=== PATIENT | female | born 1970 | race Caucasian/White ===

== ENCOUNTER 2017-10-27 20:00 | Emergency (ER) | payer BC, OTHER ==
[~2017-10-27] VITALS: Ht 176.5 cm; Wt 112.4 kg
[~2017-10-27 20:00] MED LIST: ADAL40KI SQ; ASPI325T39 PO; ASTN; ATOR-22 PO; CALC0.009 TOP; CALC500C50 PO; CITA40TA12 PO; LISI-729 PO; METF-384 PO; NRN/300 PO; OXYC7.5T37 PO; OXYM10TA6 PO; PRLSR20 PO; TRMCR130WC TOP; ZNT/150 PO
[2017-10-27 20:03] VITALS: TEMP 36.3; Ht 176.5 cm; Wt 112.4 kg
--- NOTE | 2017-10-27 20:32 | EMERGENCY ROOM VISIT NOTE ---
History Report prepared by Nancy: Ander Mccollum Under the Supervision of: Dr. Khoi Pugh M.D. First contact with patient: 20:07 Chief Complaint: KIDNEY STONE Stated Complaint: PAIN, POSSIBLE KIDNEY STONE History of Present Illness The patient is a 47 year old female who presents to the Emergency Room with complaints of left sided back pain that began about 1 week ago. She rates her pain a 4/10 in severity. She has a past medical history of psoriasis, diabetes , and GERD. She currently takes Humira, Metformin, Lisinopril, Ranitidine, and Aspirin. She also takes Percocet and Oxycodone for a previous back injury. About a week ago, she was diagnosed with walking pneumonia. She was started on Doxycycline and Prednisone. She notes that she began having this flank pain before this time, but her doctor thought it was associated with her pneumonia. However, her pain has persisted until today and she was referred to the ER for a further workup. She notes that she still has a cough with intermittent sputum production. She denies any history of blood clots. She denies any fevers, chest pain, shortness of breath, trauma, injury, abdominal pain, numbness, weakness, rashes, or abnormal urinary symptoms. She notes that her pain is mostly presented when she is sitting, and feels better when she is lying down. Source of History: patient Onset: about 1 week ago Position: other (Left flank) Symptom Intensity: 4/10 Quality: ache Timing: other (persistent) Associated Symptoms: No fevers, No chest pain, No SOB, No abdominal pain, No weakness, No numbness, No rash Review of Systems See HPI for pertinent positives & negatives. A total of 10 systems reviewed and were otherwise negative. Past Medical & Surgical Medical Problems: (1) Bronchitis (2) section (3) Cholecystectomy (4) Colonoscopy (5) Depression (6) Diabetes (7) Dyslipidemia (8) Mammography (9) Migraine (10) Psoriasis (11) Sleep apnea (12) TIA (13) Tobacco user Old medical records were reviewed. Nurse's notes were reviewed and I agree with. Family History Patient reports no known family medical history. Social History Smoking Status: Current Every Day Smoker Alcohol Use: occasionally Marital Status: Housing Status: lives with significant other Occupation Status: employed Current/Historical Medications Scheduled Adalimumab (Humira Pen), 40 MG PE SQ WK Aspirin (Aspirin Ec), 325 MG PO DAILY Atorvastatin (Lipitor), 20 MG PO DAILY Citalopram Hydrobromide (Celexa), 40 MG PO DAILY Gabapentin (Neurontin), 600 MG PO DAILY Lisinopril (Zestril), 5 MG PO DAILY Metformin Hcl (Glucophage), 1,000 MG PO BIDM Oxycodone HCl (Oxycontin), 5 MG PO BID Ranitidine Hcl (Zantac), 150 MG PO BID Scheduled PRN Omeprazole (Prilosec), 20 MG PO DAILY PRN for HEARTBURN Oxycodone/Acetaminophen 7.5MG/325MG (Percocet 7.5MG/325MG), 1 TAB PO QID PRN for Pain Allergies Coded Allergies: No Known Allergies (Verified , 10/27/17) Physical Exam Vital Signs Date Time Temp Pulse Resp B/P (MAP) Pulse Ox O2 Delivery O2 Flow Rate FiO2 10/27/17 21:53 71 20 119/66 93 Room Air 10/27/17 20:03 36.3 70 18 153/90 98 Room Air Physical Exam General: Non-ill appearing middle aged female in no acute distress. HEENT: Normal cephalic atraumatic. Pupils are equal round and reactive to light. Extraocular movements are intact. Oropharynx is pink with moist mucous membranes. No swelling of the mouth lips or tongue. Neck: Supple with a midline trachea. No meningeal signs or stiffness, no JVD or bruits. No Stridor. Chest: Clear to auscultation bilaterally. No wheezes or rhonchi. No increased work of breathing. Heart: regular rate and rhythm. Abdomen: Soft nontender, nondistended without rebound guarding or rigidity. Extremities: No cyanosis clubbing or edema. No calf tenderness or assymetry Spine/Back. Mild tenderness to the posterior left lower ribs. No rash. Skin: Good turgor without rashes. Neurologic exam: Cranial nerves two through 12 are intact. Motor and sensation are intact and symmetrical throughout. Medical Decision & Procedures ER Provider Diagnostic Interpretation: Radiology results as stated below per my review and radiologist interpretation: CHEST ONE VIEW PORTABLE HISTORY: 47 years-old Female CHEST PAIN acute atypical chest pain COMPARISON: Chest radiograph 06/20/2013 TECHNIQUE: Portable upright AP view of the chest FINDINGS: Cardiac silhouette is within normal limits. No pneumothorax, pleural effusion, focal airspace consolidation or overt pulmonary edema. The bones of the chest appear grossly intact. Mild right hemidiaphragmatic elevation is unchanged. IMPRESSION: No acute process. The above report was generated using voice recognition software. It may contain grammatical, syntax or spelling errors. Electronically signed by: Chapito Connell M.D. 10/27/2017 8:58 PM Dictated Date/Time: 10/27/2017 8:57 PM ABD/PELVIS WITHOUT FOR STONE HISTORY: 47 years-old Female left flank pain, eval for stone acute left-sided flank pain COMPARISON: None available TECHNIQUE: Multiple axial CT images of the abdomen and pelvis were obtained without IV contrast. A dose lowering technique was used consistent with the principals of KAIA. FINDINGS: Minimal bibasilar subsegmental atelectasis. No pneumatosis or pneumoperitoneum. Imaged inferior cardiac chambers are unremarkable. Prior cholecystectomy. The liver, spleen, pancreas and right adrenal gland are unremarkable. There is mild thickening of the left adrenal gland. Bilateral kidneys, ureters, and uterus are unremarkable. Mild wall thickening of the urinary bladder circumferentially. Metallic coils of the left hemipelvis suggests a tubo-ovarian occlusion device. There are metallic coil device is present within the anterior right hemipelvis, image 382 series 3 and also just superior to the uterine fundus on image 375 series 3. A linear metallic clip is seen within the right lower quadrant adjacent to the cecum anteriorly on image 390 series 3. Aorta is normal in course and caliber. No bulky adenopathy. There is no bowel obstruction identified. Indeterminate essentially fatty attenuating 1.4 x 0.6 cm structure adjacent to the peritoneum the left lower abdomen on image 265 series 3 may reflect an area of prior epiploic appendagitis or fat necrosis. The appendix is not definitively seen. No secondary signs of acute appendicitis. A small fat filled periumbilical hernia is noted. Bones appear intact. Mild degenerative changes of the spine. IMPRESSION: 1. No acute intra-abdominal or intrapelvic abnormality identified, specifically no renal calculi or obstructive uropathy. 2. Mild wall thickening of the urinary bladder is noted which may reflect cystitis. Correlate with urinalysis. 3. Metallic coils of the left hemipelvis suggests prior tubal ligation. There are additional metallic coils within the pelvis as above which are not within the region of the right adnexum. Correlate with prior surgical history and prior imaging to exclude dislodged tubo-ovarian occlusion device. 4. Prior cholecystectomy. The above report was generated using voice recognition software. It may contain grammatical, syntax or spelling errors. Electronically signed by: Chapito Connell M.D. 10/27/2017 10:14 PM Dictated Date/Time: 10/27/2017 10:03 PM Laboratory Results 10/27/17 20:40 Red Blood Count 4.45, Mean Corpuscular Volume 89.0, Mean Corpuscular Hemoglobin 29.9, Mean Corpuscular Hemoglobin Concent 33.6, Mean Platelet Volume 10.6, Neutrophils (%) (Auto) 80.6, Lymphocytes (%) (Auto) 14.0, Monocytes (%) (Auto) 4.9, Eosinophils (%) (Auto) 0.0, Basophils (%) (Auto) 0.2, Neutrophils # (Auto) 7.47, Lymphocytes # (Auto) 1.30, Monocytes # (Auto) 0.45, Eosinophils # (Auto) 0.00, Basophils # (Auto) 0.02 10/27/17 20:40 Test 10/27/17 20:40 10/27/17 20:47 10/27/17 21:00 10/27/17 21:28 White Blood Count 9.27 K/uL (4.8-10.8) Red Blood Count 4.45 M/uL (4.2-5.4) Hemoglobin 13.3 g/dL (12.0-16.0) Hematocrit 39.6 % (37-47) Mean Corpuscular Volume 89.0 fL (80-100) Mean Corpuscular Hemoglobin 29.9 pg (25-34) Mean Corpuscular Hemoglobin Concent 33.6 g/dl (32-36) Platelet Count 258 K/uL (130-400) Mean Platelet Volume 10.6 fL (7.4-10.4) Neutrophils (%) (Auto) 80.6 % Lymphocytes (%) (Auto) 14.0 % Monocytes (%) (Auto) 4.9 % Eosinophils (%) (Auto) 0.0 % Basophils (%) (Auto) 0.2 % Neutrophils # (Auto) 7.47 K/uL (1.4-6.5) Lymphocytes # (Auto) 1.30 K/uL (1.2-3.4) Monocytes # (Auto) 0.45 K/uL (0.11-0.59) Eosinophils # (Auto) 0.00 K/uL (0-0.5) Basophils # (Auto) 0.02 K/uL (0-0.2) RDW Standard Deviation 45.3 fL (36.4-46.3) RDW Coefficient of Variation 13.8 % (11.5-14.5) Immature Granulocyte % (Auto) 0.3 % Immature Granulocyte # (Auto) 0.03 K/uL (0.00-0.02) Anion Gap 7.0 mmol/L (3-11) Est Creatinine Clear Calc Drug Dose 137.3 ml/min Estimated GFR () 121.0 Estimated GFR (Non- 104.4 BUN/Creatinine Ratio 20.4 (10-20) Calcium Level 8.7 mg/dl (8.5-10.1) Total Bilirubin 0.8 mg/dl (0.2-1) Direct Bilirubin 0.1 mg/dl (0-0.2) Aspartate Amino Transf (AST/SGOT) 24 U/L (15-37) Alanine Aminotransferase (ALT/SGPT) 42 U/L (12-78) Alkaline Phosphatase 78 U/L (45-117) Total Protein 8.4 gm/dl (6.4-8.2) Albumin 3.9 gm/dl (3.4-5.0) Lipase 129 U/L (73-393) Bedside Troponin I < 0.030 ng/ml (0-0.045) Urine Color YELLOW Urine Appearance CLEAR (CLEAR) Urine pH 5.0 (4.5-7.5) Urine Specific [place] 1.018 (1.000-1.030) Urine Protein NEG (NEG) Urine Glucose (UA) NEG (NEG) Urine Ketones NEG (NEG) Urine Occult Blood NEG (NEG) Urine Nitrite NEG (NEG) Urine Bilirubin NEG (NEG) Urine Urobilinogen NEG (NEG) Urine Leukocyte Esterase NEG (NEG) Prothrombin Time 10.7 SECONDS (9.0-12.0) Prothromb Time International Ratio 1.0 (0.9-1.1) Activated Partial Thromboplast Time 24.7 SECONDS (21.0-31.0) Partial Thromboplastin Ratio 1.0 D-Dimer < 190 ug/L FEU (0-500) Laboratory studies as stated above per my review. ECG Indication: back/shoulder pain Rate (beats per minute): 63 Rhythm: normal sinus Findings: no acute ischemic change, no ectopy ED Course 2007: Past medical records reviewed. The patient was evaluated in room C9, and a complete history and physical examination were performed. 2103: The patient is resting comfortably at this time. We are waiting for her results. Her troponin was 0. 2134: She remains comfortable. 2228: Upon reevaluation, the patient is resting. I discussed the results and treatment plan with her. She verbalized agreement of the treatment plan. The patient was discharged home. Medical Decision Differentials include, but are not limited to; musculoskeletal pain, kidney stone, infection, PE, pneumonia, and UTI. This patient comes in as described above. She is having left posterior chest pain. She's had a cough and they told her that she had pneumonia. She is on doxycycline and prednisone. Because she is flying tomorrow, they wanted to come in the ER further checked evaluated for possible stone or other etiology. IV access established, EKG, and multiple blood testing was obtained. her troponin was within normal limits. Her symptoms are very atypical for cardiac disease. EKG is unremarkable and does not suggest cardiac disease or cardiac strain her d-dimer was within normal limits and a low pretest probability study makes PE highly unlikely. Chest x-ray was unremarkable does not show any pneumonia or pneumothorax. She has nothing to suggest diabetes or infection. She's had nothing to suggest liver, gallbladder or pancreas disease. CAT scan of her abdomen shows no acute findings. This may be more musculoskeletal and it hurts with palpation and movement. I do not see any evidence suggest shingles on exam. He will use ibuprofen return to ER if: increasing pain, worsening of symptoms, any new problems or concerns. Medication Reconcilliation Current Medication List: was personally reviewed by me Blood Pressure Screening Patient's blood pressure: Normal blood pressure Blood pressure disposition: Did not require urgent referral Impression Primary Impression: Left flank pain Scribe Attestation The scribe's documentation has been prepared under my direction and personally reviewed by me in its entirety. I confirm that the note above accurately reflects all work, treatment, procedures, and medical decision making performed by me. Departure Information Dispostion Home / Self-Care Referrals Leroy Alfredo III, M.D. (PCP) Forms HOME CARE DOCUMENTATION FORM, IMPORTANT VISIT INFORMATION, WORK / SCHOOL INSTRUCTIONS Patient Instructions My [facility] Additional Instructions Rest. Drink plenty of fluids. Use ibuprofen 400 mg every 6 hours, take with food Return if: Increasing pain, worsening of symptoms, shortness breath, any new problems or concerns.
[2017-10-27] MEDS ORDERED: OXYSR/10 PO (20:49)
[2017-10-27] MEDS ORDERED: OXYC7.5T65 PO (20:49)
[2017-10-27 20:54] LABS: BASO % 0.2 %; BASO ABS # 0.02 K/uL (0-0.2); COMPLETE YES; HEMATOCRIT 39.6 % (37-47); IG% 0.3 %; MEAN CORPUSCULAR HEMOGLOBIN 29.9 pg (25-34); MEAN CORPUSCULAR HGB CONC 33.6 g/dl (32-36); MEAN PLATELET VOLUME 10.6 fL (7.4-10.4); MONO % 4.9 %; NEUT % 80.6 %; PLATELET COUNT 258 K/uL (130-400); RED BLOOD COUNT 4.45 M/uL (4.2-5.4); WHITE BLOOD COUNT 9.27 K/uL (4.8-10.8)
--- NOTE | 2017-10-27 20:59 | DIAGNOSTIC IMAGING REPORT ---
CHEST ONE VIEW PORTABLE HISTORY: 47 years-old Female CHEST PAIN acute atypical chest pain COMPARISON: Chest radiograph 06/20/2013 TECHNIQUE: Portable upright AP view of the chest FINDINGS: Cardiac silhouette is within normal limits. No pneumothorax, pleural effusion, focal airspace consolidation or overt pulmonary edema. The bones of the chest appear grossly intact. Mild right hemidiaphragmatic elevation is unchanged. IMPRESSION: No acute process. The above report was generated using voice recognition software. It may contain grammatical, syntax or spelling errors. Electronically signed by: Chapito Connell M.D. 10/27/2017 8:58 PM Dictated Date/Time: 10/27/2017 8:57 PM
[2017-10-27 21:16] LABS: BUN/CREATININE RATIO 20.4 (10-20); CALCIUM 8.7 mg/dl (8.5-10.1); CREATININE 0.69 mg/dl (0.60-1.20); POTASSIUM 3.8 mmol/L (3.5-5.1)
[2017-10-27 21:20] LABS: URINE APPEARANCE CLEAR (CLEAR); URINE BILIRUBIN NEG (NEG); URINE COLOR YELLOW; URINE NITRITE NEG (NEG); URINE SPECIFIC GRAVITY 1.018 (1.000-1.030); UROBILINOGEN NEG (NEG)
[2017-10-27 21:23] LABS: MANUAL MICROSCOPIC REQUIRED? NO; REVIEW REQ? NO
[2017-10-27 21:55] LABS: PROTHROMBIN TIME (PATIENT) 10.7 SECONDS (9.0-12.0)
--- NOTE | 2017-10-27 22:16 | DIAGNOSTIC IMAGING REPORT ---
ABD/PELVIS WITHOUT FOR STONE HISTORY: 47 years-old Female left flank pain, eval for stone acute left-sided flank pain COMPARISON: None available TECHNIQUE: Multiple axial CT images of the abdomen and pelvis were obtained without IV contrast. A dose lowering technique was used consistent with the principals of KAIA. FINDINGS: Minimal bibasilar subsegmental atelectasis. No pneumatosis or pneumoperitoneum. Imaged inferior cardiac chambers are unremarkable. Prior cholecystectomy. The liver, spleen, pancreas and right adrenal gland are unremarkable. There is mild thickening of the left adrenal gland. Bilateral kidneys, ureters, and uterus are unremarkable. Mild wall thickening of the urinary bladder circumferentially. Metallic coils of the left hemipelvis suggests a tubo-ovarian occlusion device. There are metallic coil device is present within the anterior right hemipelvis, image 382 series 3 and also just superior to the uterine fundus on image 375 series 3. A linear metallic clip is seen within the right lower quadrant adjacent to the cecum anteriorly on image 390 series 3. Aorta is normal in course and caliber. No bulky adenopathy. There is no bowel obstruction identified. Indeterminate essentially fatty attenuating 1.4 x 0.6 cm structure adjacent to the peritoneum the left lower abdomen on image 265 series 3 may reflect an area of prior epiploic appendagitis or fat necrosis. The appendix is not definitively seen. No secondary signs of acute appendicitis. A small fat filled periumbilical hernia is noted. Bones appear intact. Mild degenerative changes of the spine. IMPRESSION: 1. No acute intra-abdominal or intrapelvic abnormality identified, specifically no renal calculi or obstructive uropathy. 2. Mild wall thickening of the urinary bladder is noted which may reflect cystitis. Correlate with urinalysis. 3. Metallic coils of the left hemipelvis suggests prior tubal ligation. There are additional metallic coils within the pelvis as above which are not within the region of the right adnexum. Correlate with prior surgical history and prior imaging to exclude dislodged tubo-ovarian occlusion device. 4. Prior cholecystectomy. The above report was generated using voice recognition software. It may contain grammatical, syntax or spelling errors. Electronically signed by: Chapito Connell M.D. 10/27/2017 10:14 PM Dictated Date/Time: 10/27/2017 10:03 PM
[2017-10-27 22:42] VITALS: BP 122/74; PULSE 68; O2SAT 98
== END 2017-10-27 22:43 | disposition home or self-care (01) ==
LOC: C.EDB 20:00 → C.EDC 22:43
DX: R10.9 Unspecified abdominal pain (principal); E11.9 Type 2 diabetes mellitus without complications; K21.9 Gastro-esophageal reflux disease without esophagitis; E78.5 Hyperlipidemia, unspecified; G43.909 Migraine, unspecified, not intractable, without status migrainosus; L40.9 Psoriasis, unspecified; G47.30 Sleep apnea, unspecified; Z86.73 Personal history of transient ischemic attack (TIA), and cerebral infarction without residual deficits; F17.210 Nicotine dependence, cigarettes, uncomplicated; Z79.82 Long term (current) use of aspirin; Z79.899 Other long term (current) drug therapy